=== PATIENT | male | born 1960 | race Caucasian/White ===

== ENCOUNTER 2019-04-19 21:09 | Inpatient (IN) | payer BC, OTHER ==
[~2019-04-19] VITALS: Ht 177.8 cm; Wt 123.1 kg
--- NOTE | 2019-04-19 21:20 | ED.ADGEN ---
Past History Past Medical History: Arthritis, High Cholesterol Past Surgical History: Appendectomy, Cholecystectomy Alcohol Use: Occasionally Drug Use: None Adult General Chief Complaint Chief Complaint "..I.. was at work the other morning... at [employer]... I slipped on a wet bumper I was attempting to step up onto.. and hit this Rt leg.. and fell and hurt this Rt chest.. and it not gotten better...".."My chest pain has gotten worse since the injury..." HPI HPI Patient is a 58 year old male who presents with above hx and complaints chest and back pain after a fall at work. Patient also has an abrasion to right knee. Patient states his tetanus is up-to-date. Patient states pain has been somewhat persistent but he seems more sore tonight. Patient does have a history of elevated cholesterol. Crohn's disease and multiple abdomen surgeries. Patient has a strong family history of cardiac disease with one brother having an MD at age 50. Patient's last cardiac stress test approximate 4 years ago. Patient does give a history of elevated cholesterol. Review of Systems Review of Systems Constitutional: Denies fever or chills [] Eyes: Denies change in visual acuity, redness, or eye pain [] HENT: Denies nasal congestion or sore throat [] Respiratory: Complaints of shortness of breath and chest pain. Pain in right shoulder. Cardiovascular: No additional information not addressed in HPI [] GI: Denies abdominal pain, nausea, vomiting, bloody stools or diarrhea [] : Denies dysuria or hematuria [] Musculoskeletal: Denies back pain or joint pain []abrasion and contusion to right knee Integument: Denies rash or skin lesions [] Neurologic: Denies headache, focal weakness or sensory changes [] Endocrine: Denies polyuria or polydipsia [] All other systems were reviewed and found to be within normal limits, except as documented in this note. Family History Family History MD in brother age 50 Current Medications Current Medications Current Medications Medications (Trade) Dose Ordered Sig/Ericka Start Time Stop Time Status Last Admin Dose Admin Aspirin (Children'S Aspirin) 324 mg 1X ONCE 04/19/19 22:00 04/19/19 22:01 DC 04/19/19 22:42 324 MG Iohexol (Omnipaque 240 Mg/ml) 30 ml 1X ONCE 8/19/19 01:30 04/20/19 01:31 DC 04/20/19 02:31 30 ML Iohexol (Omnipaque 350 Mg/ml) 100 ml 1X ONCE 04/20/19 01:30 04/20/19 01:31 DC 04/20/19 02:31 100 ML Lactated Ringer's 1,000 ml @ 1,000 mls/hr Q1H 04/19/19 22:00 04/19/19 22:59 DC 04/19/19 22:42 1,000 MLS/HR Magnesium Sulfate 50 ml @ 25 mls/hr 1X ONCE 04/20/19 02:00 04/20/19 03:59 DC 04/20/19 02:01 25 MLS/HR Morphine Sulfate (Morphine 10mg Syringe) 10 mg 1X ONCE 04/20/19 01:30 04/20/19 01:31 DC 04/20/19 01:31 10 MG Ondansetron HCl (Zofran) 4 mg STK-MED ONCE 04/20/19 01:58 04/20/19 01:58 DC Allergies Allergies Allergies Coded Allergies Type Severity Reaction Last Updated Verified No Known Drug Allergies 05/14/14 No Physical Exam Physical Exam Constitutional: Moderate acute distress, non-toxic appearance. [] HENT: Normocephalic, atraumatic, bilateral external ears normal, oropharynx moist, no oral exudates, nose normal. [] Eyes: PERRLA, EOMI, conjunctiva normal, no discharge. [] Neck: Normal range of motion, no tenderness, supple, no stridor. [] Cardiovascular:Heart rate regular rhythm, no murmur [] Lungs & Thorax: Bilateral breath sounds equal at apexes on auscultation []chest wall tenderness on right chest wall and right upper chest. Abdomen: Bowel sounds normal, soft, no tenderness, no masses, no pulsatile masses. [] Multiple old surgery scars Skin: Warm, dry, no erythema, no rash. [] Back: No tenderness, no CVA tenderness. [] Extremities: No tenderness, no cyanosis, no clubbing, ROM intact, no edema. []Contusion abrasion right knee Neurologic: Alert and oriented X 3, normal motor function, normal sensory function, no focal deficits noted. [] Psychologic: Affect anxious, judgement normal, mood normal. [] Current Patient Data Vital Signs Vital Signs Date Time Temp Pulse Resp B/P (MAP) Pulse Ox O2 Delivery O2 Flow Rate FiO2 04/20/19 01:31 18 97 Room Air 04/20/19 01:30 57 123/62 (82) 04/19/19 21:09 97.8 Lab Results Laboratory Tests Test 04/19/19 21:50 04/19/19 22:00 Urine Collection Type Unknown Urine Color Yellow Urine Clarity Clear Urine pH 6.0 Urine Specific [place] 1.025 Urine Protein Neg (NEG-TRACE) Urine Glucose (UA) Neg mg/dL (NEG) Urine Ketones (Stick) Neg mg/dL (NEG) Urine Blood Neg (NEG) Urine Nitrite Neg (NEG) Urine Bilirubin Neg (NEG) Urine Urobilinogen Dipstick 0.2 mg/dL (0.2 mg/dL) Urine Leukocyte Esterase Neg (NEG) Urine RBC 0 /HPF (0-2) Urine WBC Occ /HPF (0-4) Urine Squamous Epithelial Cells Occ /LPF Urine Bacteria 0 /HPF (0-FEW) Urine Opiates Screen Neg (NEG) Urine Methadone Screen Neg (NEG) Urine Barbiturates Neg (NEG) Urine Phencyclidine Screen Neg (NEG) Urine Amphetamine/Methamphetamine Neg (NEG) Urine Benzodiazepines Screen Neg (NEG) Urine Cocaine Screen Neg (NEG) Urine Cannabinoids Screen Neg (NEG) Urine Ethyl Alcohol Neg (NEG) White Blood Count 6.0 x10^3/uL (4.0-11.0) Red Blood Count 5.07 x10^6/uL (4.30-5.70) Hemoglobin 13.6 g/dL (13.0-17.5) Hematocrit 41.9 % (39.0-53.0) Mean Corpuscular Volume 83 fL (79-100) Mean Corpuscular Hemoglobin 27 pg (25-35) Mean Corpuscular Hemoglobin Concent 32 g/dL (31-37) Red Cell Distribution Width 16.6 % (11.5-14.5) H Platelet Count 275 x10^3/uL (140-400) Neutrophils (%) (Auto) 73 % (31-73) Lymphocytes (%) (Auto) 13 % (24-48) L Monocytes (%) (Auto) 9 % (0-9) Eosinophils (%) (Auto) 4 % (0-3) H Basophils (%) (Auto) 1 % (0-3) Neutrophils # (Auto) 4.4 x10^3uL (1.8-7.7) Lymphocytes # (Auto) 0.8 x10^3/uL (1.0-4.8) L Monocytes # (Auto) 0.6 x10^3/uL (0.0-1.1) Eosinophils # (Auto) 0.2 x10^3/uL (0.0-0.7) Basophils # (Auto) 0.0 x10^3/uL (0.0-0.2) Prothrombin Time 10.2 SEC (9.4-11.4) Prothrombin Time INR 1.0 (0.9-1.1) Activated Partial Thromboplast Time 25 SEC (23-33) D-Dimer (Cathy) 0.72 mg/L (0.00-0.50) H Sodium Level 140 mmol/L (136-145) Potassium Level 3.7 mmol/L (3.5-5.1) Chloride Level 103 mmol/L (98-107) Carbon Dioxide Level 31 mmol/L (21-32) Anion Gap 6 (6-14) Blood Urea Nitrogen 18 mg/dL (8-26) Creatinine 1.1 mg/dL (0.7-1.3) Estimated GFR (Cockcroft-Gault) 68.5 Glucose Level 104 mg/dL (70-99) H Calcium Level 8.9 mg/dL (8.5-10.1) Magnesium Level 1.7 mg/dL (1.8-2.4) L Total Bilirubin 0.4 mg/dL (0.2-1.0) Direct Bilirubin 0.1 mg/dL (0.0-0.2) Aspartate Amino Transferase (AST) 28 U/L (15-37) Alanine Aminotransferase (ALT) 30 U/L (16-63) Alkaline Phosphatase 96 U/L (46-116) Creatine Kinase 108 U/L (39-308) Troponin I Quantitative < 0.017 ng/mL (0-0.055) YZ-Bqt-T-Type Natriuretic Peptide 106 pg/mL (0-124) Total Protein 8.1 g/dL (6.4-8.2) Albumin 3.6 g/dL (3.4-5.0) Lipase 166 U/L (73-393) EKG EKG My interpretation of EKG shows a sinus rhythm at 63 bpm. No acute morphology[] Radiology/Procedures Radiology/Procedures [][address] [id number] IMAGING REPORT Signed PATIENT: BRIANNA RIVERA ACCOUNT: [id number] : 1960 LOCATION: ER AGE: 58 SEX: M EXAM STATUS: REG ER ORD. PHYSICIAN: JEANETTE GRECO MD REASON: Fall 04/17/19 on right sided, chest, back and abdomen pain, elevat PROCEDURE: CT ANGIO CHEST W ABD PEL W/ EXAM: 1. CT ANGIOGRAPHY OF THE CHEST, ABDOMEN AND PELVIS WITH AND WITHOUT CONTRAST. 2. CT THORACIC SPINE WITHOUT CONTRAST. HISTORY: Fall, back pain, right chest pain, elevated d-dimer. TECHNIQUE: Computed tomographic angiography of the chest, abdomen and pelvis was performed before and after the intravenous administration of iodinated contrast. 3-D maximum intensity projections were also performed. CT of the thoracic spine was performed without intravenous contrast. COMPARISON: None. FINDINGS: Thoracic alignment is maintained. No fractures are appreciated within the thoracic spine. There is a prominent hemangioma in T11. There are small Schmorl's nodes throughout the lower thoracic spine. Mild wedging at T8 is likely developmental. Endplate remodeling indicates mild lower thoracic degenerative disc disease. There is no clear central canal stenosis or neural foraminal stenosis by CT. Bone windows elsewhere reveal a nondisplaced fracture of the right second rib which may be acute or chronic. There are no displaced rib fractures.. There is grade 2 anterolisthesis at L4-5 from bilateral L4 pars interarticularis defects. There is severe degenerative disc disease at this level. No pulmonary emboli are identified. There is no aortic dissection or aneurysm. There are no pathologically enlarged mediastinal or axillary lymph nodes. Calcified left hilar lymph nodes are consistent with old granulomatous disease. There is no pleural or pericardial effusion. The heart is not enlarged. Dependent groundglass opacities most likely indicate atelectasis. The gallbladder is surgically absent. There is moderate intra and extrahepatic biliary dilatation. The common duct measures 1.5 cm but appears to taper distally without a clear cause for obstruction. The pancreatic duct is not dilated. No pancreatic parenchymal lesion is identified. Hypoattenuating focus within the spleen posteriorly measures 1.7 cm. The spleen is moderately enlarged at 17.6 cm. There are no focal hepatic lesions. The kidneys and adrenal glands are unremarkable. There are changes of mesh repair of the anterior abdominal wall. There are multiple moderate hernias surrounding the periphery of the mesh most notably inferiorly. Smaller hernias are also noted lateral and superior to the mesh. The largest inferiorly contains a segment of the transverse colon without evidence of obstruction. The prostate is moderately enlarged. There are no pathologically enlarged lymph nodes. There is no abdominal aortic aneurysm. The celiac axis, superior mesenteric artery and inferior mesenteric artery are patent. Opacification is suboptimal. Both renal arteries are patent without stenosis. There are minimal atherosclerotic calcifications along the left common iliac artery. The iliac systems are patent without stenosis bilaterally. IMPRESSION: 1. No pulmonary embolism. 2. Possible nondisplaced right second rib fracture, though this may not be acute. No displaced rib fractures. No evidence of intrathoracic or intra-abdominal trauma. 3. No thoracic spine fracture. Grade 2 anterolisthesis at L4-5 from bilateral elbow 4 pars interarticularis defects. 4. Status post mesh repair of the anterior abdominal wall. There are multiple hernias surrounding the periphery of the mass. The largest inferiorly contains a segment of the transverse colon without acute obstruction. Ongoing management is recommended. 5. Moderate intra and extrahepatic biliary dilatation status post cholecystectomy. No cause for obstruction is seen. Correlate for cholestasis to assess significance. 6. Moderate splenomegaly. A 1.7 cm hypoattenuating lesion in the spleen is most likely a benign lesion such as a cyst or hemangioma in the absence of known malignancy. *One or more of the following individualized dose reduction techniques were utilized for this examination: 1. Automated exposure control. 2. Adjustment of the mA and/or kV according to patient size. 3. Use of iterative reconstruction technique. Electronically signed by: Sid Saenz MD (04/20/2019 4:18 AM) [facility] DICTATED AND SIGNED BY: JACOBY SAENZ MD DATE: 04/20/19 0418 CC: RACHEL DAI MD; JEANETTE GRECO MD ~ [facility] [address] [place] [id number] IMAGING REPORT Signed PATIENT: BRIANNA RIVERA ACCOUNT: [id number] : 1960 LOCATION: ER AGE: 58 SEX: M EXAM STATUS: PRE ER ORD. PHYSICIAN: JEANETTE GRECO MD REASON: Fell on right shoulder, right shoulder and chest pain PROCEDURE: CHEST PA & LATERAL Exam: Chest 2 views INDICATION: Fall TECHNIQUE: Frontal and lateral views of the chest Comparisons: None FINDINGS: The cardiomediastinal silhouette and pulmonary vessels are within normal limits. The lung and pleural spaces are clear. IMPRESSION: No acute cardiopulmonary process. Electronically signed by: Pedro Luis Elmore MD (04/19/2019 10:53 PM) [facility] DICTATED AND SIGNED BY: PEDRO LUIS ELMORE MD DATE: 04/19/19 3134 CC: RACHEL DAI MD; JEANETTE GRECO MD ~ Course & Med Decision Making Course & Med Decision Making Pertinent Labs and Imaging studies reviewed. (See chart for details) Discussed presentation, testing and treatment plan with . Will admit for cardiology consult. [] Final Impression Final Impression 1. Chest Pain[] 2. Back Pain- Thoracic 3. Fall 4. Hypomagnesium 1.7 5. Elevated D-dimer 0.72 6. Second nondisplaced rib fracture right 7. Contusions/abrasions Dragon Disclaimer Dragon Disclaimer This electronic medical record was generated, in whole or in part, using a voice recognition dictation system. Dragon Disclaimer This chart was dictated in whole or in part using Voice Recognition software in a busy, high-work load, and often noisy Emergency Department environment. It may contain unintended and wholly unrecognized errors or omissions. JEANETTE GRECO MD Apr 19, 2019 21:20
[2019-04-19] MEDS ORDERED: ASPIRIN 81 MG TAB.CHEW PO ONE (22:00)
[2019-04-19] MEDS ORDERED: IV RINGERS SOLUTION,LACTATED 1,000 ML IV SCH (22:00)
[2019-04-19 22:16] LABS: BASO % 1 % (0-3); EOS # 0.2 x10^3/uL (0.0-0.7); EOS % 4 % (0-3); HEMATOCRIT 41.9 % (39.0-53.0); HEMOGLOBIN 13.6 g/dL (13.0-17.5); LYMPH # 0.8 x10^3/uL (1.0-4.8); LYMPH % 13 % (24-48); MEAN CORPUSCULAR HEMOGLOBIN 27 pg (25-35); MEAN CORPUSCULAR HGB CONC 32 g/dL (31-37); MEAN CORPUSCULAR VOLUME 83 fL (79-100); MONO # 0.6 x10^3/uL (0.0-1.1); MONO % 9 % (0-9); NEUT # 4.4 x10^3uL (1.8-7.7); NEUT % 73 % (31-73); PLATELET COUNT 275 x10^3/uL (140-400); RED BLOOD COUNT 5.07 x10^6/uL (4.30-5.70); RED CELL DISTRIBUTION WIDTH 16.6 % (11.5-14.5)
[2019-04-19 22:23] LABS: BARBITURATES NEG (NEG); BENZODIAZEPINES NEG (NEG); CANNABINOIDS NEG (NEG); COCAINE NEG (NEG); METHADONE NEG (NEG); OPIATES NEG (NEG); PHENCYCLIDINE NEG (NEG)
--- NOTE | 2019-04-19 22:28 | EKG ---
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
[2019-04-19 22:31] LABS: BACTERIA,URINE 0 /HPF (0-FEW); BILIRUBIN,URINE NEG (NEG); CLARITY,URINE CLEAR; COLOR,URINE YELLOW; GLUCOSE,URINE NEG (NEG); NITRITE,URINE NEG (NEG); RBC,URINE 0 /HPF (0-2); SQUAMOUS EPITHELIAL CELL,UR OCC /LPF; UROBILINOGEN,URINE 0.2 mg/dL (0.2 mg/dL); WBC,URINE OCC /HPF (0-4)
[2019-04-19 22:34] LABS: AMPHETAMINE/METHAMPHETAMINE NEG (NEG)
[2019-04-19 22:40] LABS: ALBUMIN 3.6 g/dL (3.4-5.0); CALCIUM 8.9 mg/dL (8.5-10.1); CREATININE 1.1 mg/dL (0.7-1.3); DIRECT BILIRUBIN 0.1 mg/dL (0.0-0.2); GFR 68.5; MAGNESIUM 1.7 mg/dL (1.8-2.4); POTASSIUM 3.7 mmol/L (3.5-5.1); TOTAL BILIRUBIN 0.4 mg/dL (0.2-1.0); TOTAL PROTEIN 8.1 g/dL (6.4-8.2)
--- NOTE | 2019-04-19 22:56 | RAD ---
Exam: Chest 2 views INDICATION: Fall TECHNIQUE: Frontal and lateral views of the chest Comparisons: None FINDINGS: The cardiomediastinal silhouette and pulmonary vessels are within normal limits. The lung and pleural spaces are clear. IMPRESSION: No acute cardiopulmonary process. Electronically signed by: Pedro Luis Koo MD (04/19/2019 10:53 PM) [facility]
[2019-04-20] MEDS ORDERED: MORPHINE SULFATE 10 MG/ML SYRINGE. SQ ONE (01:30)
[2019-04-20] MEDS ORDERED: IOHEXOL 240 MG/ML 50ML VIAL. PO ONE (01:30)
[2019-04-20] MEDS ORDERED: IOHEXOL 350 MG/ML 100 ML VIAL. IV ONE (01:30)
[2019-04-20] MEDS ORDERED: ONDANSETRON PF 4 MG/2 ML VIAL. ONE (01:58)
[2019-04-20] MEDS ORDERED: MAGNESIUM SULFATE 2GM 50 ML IV ONE (02:00)
[2019-04-20] MEDS ORDERED: ONDANSETRON PF 4 MG/2 ML VIAL. IM ONE (02:15)
[2019-04-20] MEDS ORDERED: ONDANSETRON PF 4 MG/2 ML VIAL. IV ONE (02:15)
--- NOTE | 2019-04-20 04:13 | EKG ---
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
--- NOTE | 2019-04-20 04:21 | RAD ---
EXAM: 1. CT ANGIOGRAPHY OF THE CHEST, ABDOMEN AND PELVIS WITH AND WITHOUT CONTRAST. 2. CT THORACIC SPINE WITHOUT CONTRAST. HISTORY: Fall, back pain, right chest pain, elevated d-dimer. TECHNIQUE: Computed tomographic angiography of the chest, abdomen and pelvis was performed before and after the intravenous administration of iodinated contrast. 3-D maximum intensity projections were also performed. CT of the thoracic spine was performed without intravenous contrast. COMPARISON: None. FINDINGS: Thoracic alignment is maintained. No fractures are appreciated within the thoracic spine. There is a prominent hemangioma in T11. There are small Schmorl's nodes throughout the lower thoracic spine. Mild wedging at T8 is likely developmental. Endplate remodeling indicates mild lower thoracic degenerative disc disease. There is no clear central canal stenosis or neural foraminal stenosis by CT. Bone windows elsewhere reveal a nondisplaced fracture of the right second rib which may be acute or chronic. There are no displaced rib fractures.. There is grade 2 anterolisthesis at L4-5 from bilateral L4 pars interarticularis defects. There is severe degenerative disc disease at this level. No pulmonary emboli are identified. There is no aortic dissection or aneurysm. There are no pathologically enlarged mediastinal or axillary lymph nodes. Calcified left hilar lymph nodes are consistent with old granulomatous disease. There is no pleural or pericardial effusion. The heart is not enlarged. Dependent groundglass opacities most likely indicate atelectasis. The gallbladder is surgically absent. There is moderate intra and extrahepatic biliary dilatation. The common duct measures 1.5 cm but appears to taper distally without a clear cause for obstruction. The pancreatic duct is not dilated. No pancreatic parenchymal lesion is identified. Hypoattenuating focus within the spleen posteriorly measures 1.7 cm. The spleen is moderately enlarged at 17.6 cm. There are no focal hepatic lesions. The kidneys and adrenal glands are unremarkable. There are changes of mesh repair of the anterior abdominal wall. There are multiple moderate hernias surrounding the periphery of the mesh most notably inferiorly. Smaller hernias are also noted lateral and superior to the mesh. The largest inferiorly contains a segment of the transverse colon without evidence of obstruction. The prostate is moderately enlarged. There are no pathologically enlarged lymph nodes. There is no abdominal aortic aneurysm. The celiac axis, superior mesenteric artery and inferior mesenteric artery are patent. Opacification is suboptimal. Both renal arteries are patent without stenosis. There are minimal atherosclerotic calcifications along the left common iliac artery. The iliac systems are patent without stenosis bilaterally. IMPRESSION: 1. No pulmonary embolism. 2. Possible nondisplaced right second rib fracture, though this may not be acute. No displaced rib fractures. No evidence of intrathoracic or intra-abdominal trauma. 3. No thoracic spine fracture. Grade 2 anterolisthesis at L4-5 from bilateral elbow 4 pars interarticularis defects. 4. Status post mesh repair of the anterior abdominal wall. There are multiple hernias surrounding the periphery of the mass. The largest inferiorly contains a segment of the transverse colon without acute obstruction. Ongoing management is recommended. 5. Moderate intra and extrahepatic biliary dilatation status post cholecystectomy. No cause for obstruction is seen. Correlate for cholestasis to assess significance. 6. Moderate splenomegaly. A 1.7 cm hypoattenuating lesion in the spleen is most likely a benign lesion such as a cyst or hemangioma in the absence of known malignancy. *One or more of the following individualized dose reduction techniques were utilized for this examination: 1. Automated exposure control. 2. Adjustment of the mA and/or kV according to patient size. 3. Use of iterative reconstruction technique. Electronically signed by: Sid Saenz MD (04/20/2019 4:18 AM) [facility]
[2019-04-20] MEDS ORDERED: ONDANSETRON PF 4 MG/2 ML VIAL. IV PRN (04:45)
[2019-04-20] MEDS ORDERED: MORPHINE SULFATE 4 MG/ML DISP.SYRIN. IV PRN (04:45)
[2019-04-20] MEDS ORDERED: IPRATRPIUM/ALBUTEROL 0.5/2.5MG 3 ML NEBU. ONE (04:52)
[2019-04-20] MEDS ORDERED: ANTI-COAG MONITOR BY PHARMACY. MC PRN (05:00)
[2019-04-20] MEDS: IPRATRPIUM/ALBUTEROL 0.5/2.5MG 3 ML NEBU. NEB SCH ×3 (05:08→16:21)
[2019-04-20 06:16] VITALS: BP 133/78
[2019-04-20] MEDS ORDERED: MESA1.2T3 PO (07:39)
[2019-04-20] MEDS ORDERED: ATOR10TA60 PO (07:39)
[2019-04-20] MEDS ORDERED: ASPI-630 PO (07:39)
[2019-04-20] MEDS ORDERED: HYDR200T71 PO (07:39)
[2019-04-20] MEDS ORDERED: TAMS0.4C97 PO (07:39)
[2019-04-20] MEDS ORDERED: MESALAMINE 1.2 GM TABLET.DR PO SCH (09:00)
[2019-04-20] MEDS ORDERED: HYDROXYCHLOROQUINE 200 MG TABLET PO SCH (09:00)
[2019-04-20] MEDS ORDERED: ASPIRIN 81 MG TAB.CHEW PO SCH (09:00)
[2019-04-20] MEDS ORDERED: ENOXAPARIN ** NOTE DOSE ** SYRINGE SQ SCH ×2 (09:00→21:00)
[2019-04-20] MEDS ORDERED: TAMSULOSIN 0.4 MG CAP.ER.24H. PO SCH (09:00)
--- NOTE | 2019-04-20 09:02 | PDOC2 ---
BERNARDINO ABARCA OPERATIONS CONSULTANT 04/20/19 0902: CARDIAC CONSULT DATE OF CONSULT Date Of Consult DATE: 04/20/19 TIME: 09:00 REASON FOR CONSULT Reason for Consult Chest pain Elevated lipids REFERRING PHYSICIAN Referring Physician Dr. Madrid SOURCE Source: Chart review, Patient HPI History of Present Illness This is a 58 yo male who presented secondary to right chest and shoulder pain after following a fall at work. Patient reports he was at work Saturday and sl ipped and fell out of the back of a pickup truck, landing on his right shoulder/chest and right knee. Had some pain in the right shoulder/chest immediately after the fall, but has progressively worsened over the weekend. No associated dizziness, diaphoresis, palpitations, diaphoresis, or nausea/vomiting. Pain worsening with deep breathing and by applying pressure to the right chest. PAST MEDICAL HISTORY Cardiovascular: hyperipidemia GI: Other (Crohn's Disease) Heme/Onc: Anemia NOS Rheumatologic: Rheumatoid arthritis PAST SURGICAL HISTORY Past Surgical History: Appendectomy, Cholecystectomy, Hernia Repair FAMILY HISTORY Family History: Coronary Artery Disease (both father and brother in their 50's from [place].) CURRENT MEDICATIONS Current Medications Current Medications Aspirin (Children'S Aspirin) 324 mg 1X ONCE PO Last administered on 04/19/19 22:42; Start 04/19/19 at 22:00; Stop 04/19/19 at 22:01; Status DC Lactated Ringer's 1,000 ml @ 1,000 mls/hr Q1H IV Last administered on 04/19/19 22:42; Start 04/19/19 at 22:00; Stop 04/19/19 at 22:59; Status DC Iohexol (Omnipaque 240 Mg/ml) 30 ml 1X ONCE PO Last administered on 04/20/19 02:31; Start 04/20/19 at 01:30; Stop 04/20/19 at 01:31; Status DC Iohexol (Omnipaque 350 Mg/ml) 100 ml 1X ONCE IV Last administered on 04/20/19 02:31; Start 04/20/19 at 01:30; Stop 04/20/19 at 01:31; Status DC Morphine Sulfate (Morphine 10mg Syringe) 10 mg 1X ONCE SQ Last administered on 04/20/19 01:31; Start 04/20/19 at 01:30; Stop 04/20/19 at 01:31; Status DC Magnesium Sulfate 50 ml @ 25 mls/hr 1X ONCE IV Last administered on 04/20/19at 02:01; Start 04/20/19 at 02:00; Stop 04/20/19 at 03:59; Status DC Ondansetron HCl (Zofran) 4 mg STK-MED ONCE .ROUTE ; Start 04/20/19 at 01:58; Stop 04/20/19 at 01:58; Status DC Ondansetron HCl (Zofran) 8 mg 1X ONCE IM Last administered on 04/20/19at 02:08; Start 04/20/19 at 02:15; Stop 04/20/19 at 02:09; Status DC Ondansetron HCl (Zofran) 8 mg 1X ONCE IV Last administered on 04/20/19at 02:12; Start 04/20/19 at 02:15; Stop 04/20/19 at 02:16; Status DC Ondansetron HCl (Zofran) 4 mg PRN Q4HRS PRN IV NAUSEA/VOMITING; Start 04/20/19 at 04:45; Stop 04/21/19 at 04:44 Morphine Sulfate (Morphine 4mg Syringe) 4 mg PRN Q2HR PRN IV PAIN; Start 04/20/19 at 04:45; Stop 04/21/19 at 04:44 Albuterol/ Ipratropium (Duoneb) 3 ml RTQID NEB Last administered on 04/20/19at 05:08; Start 04/20/19 at 08:00; Stop 04/21/19 at 07:59 Enoxaparin Sodium (Lovenox 150mg Syringe) 140 mg BID SQ ; Start 04/20/19 at 09:00 Nitroglycerin (Nitro-Bid Oint) 1 inch TID TP ; Start 04/20/19 at 09:00 Info (Anti-Coagulation Monitoring By Pharmacy) 1 each PRN DAILY PRN MC SEE COMMENTS; Start 04/20/19 at 05:00; Status Cancel Albuterol/ Ipratropium (Duoneb) 3 ml STK-MED ONCE .ROUTE ; Start 04/20/19 at 04:52; Stop 04/20/19 at 04:52; Status DC Aspirin (Children'S Aspirin) 81 mg DAILY PO ; Start 04/20/19 at 09:00 Atorvastatin Calcium (Lipitor) 10 mg QHS PO ; Start 04/20/19 at 21:00 Hydroxychloroquine Sulfate (Plaquenil) 200 mg DAILY PO ; Start 04/20/19 at 09:00 Mesalamine (Lialda) 4.8 gm DAILY PO ; Start 04/20/19 at 09:00 Tamsulosin HCl (Flomax) 0.4 mg DAILY PO ; Start 04/20/19 at 09:00 Active Scripts Active Reported Plaquenil (Hydroxychloroquine Sulfate) 200 Mg Tablet 200 Mg PO DAILY Mesalamine 1.2 Gm Tablet.dr 4 Tab PO DAILY Atorvastatin Calcium 10 Mg Tablet 10 Mg PO QHS Flomax (Tamsulosin Hcl) 0.4 Mg Cap.er.24h 1 Cap PO DAILY Aspirin 81 Mg Tab.chew 81 Mg PO DAILY ALLERGIES Allergies: Coded Allergies: No Known Drug Allergies (Unverified , 05/14/14) ROS Review of Systems 14 point ROS conducted with pertinent positives noted above in HPI PHYSICAL EXAM General: Alert, Oriented X3, Cooperative, No acute distress HEENT: Atraumatic, Mucous membr. moist/pink Lungs: Clear to auscultation, Normal air movement, Other (right chest tenderness upon palpitation) Heart: Regular rate, Normal S1, Normal S2, No murmurs Abdomen: Soft, No tenderness Extremities: No edema, Normal pulses Skin: No breakdown Neuro: Normal speech, Sensation intact Psych/Mental Status: Mental status NL, Mood NL MUSCULOSKELETAL: Osteoarthritic changes both hands VITALS Vital Signs Vital Signs Date Time Temp Pulse Resp B/P (MAP) Pulse Ox O2 Delivery O2 Flow Rate FiO2 04/20/19 08:00 Room Air 04/20/19 06:16 97.4 65 17 133/78 (96) 96 LABS LABS Laboratory Tests Test 04/19/19 21:50 04/19/19 22:00 04/20/19 03:45 04/20/19 08:00 Urine Collection Type Unknown Urine Color Yellow Urine Clarity Clear Urine pH 6.0 Urine Specific [place] 1.025 Urine Protein Neg (NEG-TRACE) Urine Glucose (UA) Neg mg/dL (NEG) Urine Ketones (Stick) Neg mg/dL (NEG) Urine Blood Neg (NEG) Urine Nitrite Neg (NEG) Urine Bilirubin Neg (NEG) Urine Urobilinogen Dipstick 0.2 mg/dL (0.2 mg/dL) Urine Leukocyte Esterase Neg (NEG) Urine RBC 0 /HPF (0-2) Urine WBC Occ /HPF (0-4) Urine Squamous Epithelial Cells Occ /LPF Urine Bacteria 0 /HPF (0-FEW) Urine Opiates Screen Neg (NEG) Urine Methadone Screen Neg (NEG) Urine Barbiturates Neg (NEG) Urine Phencyclidine Screen Neg (NEG) Urine Amphetamine/Methamphetamine Neg (NEG) Urine Benzodiazepines Screen Neg (NEG) Urine Cocaine Screen Neg (NEG) Urine Cannabinoids Screen Neg (NEG) Urine Ethyl Alcohol Neg (NEG) White Blood Count 6.0 x10^3/uL (4.0-11.0) Red Blood Count 5.07 x10^6/uL (4.30-5.70) Hemoglobin 13.6 g/dL (13.0-17.5) Hematocrit 41.9 % (39.0-53.0) Mean Corpuscular Volume 83 fL (79-100) Mean Corpuscular Hemoglobin 27 pg (25-35) Mean Corpuscular Hemoglobin Concent 32 g/dL (31-37) Red Cell Distribution Width 16.6 % (11.5-14.5) Platelet Count 275 x10^3/uL (140-400) Neutrophils (%) (Auto) 73 % (31-73) Lymphocytes (%) (Auto) 13 % (24-48) Monocytes (%) (Auto) 9 % (0-9) Eosinophils (%) (Auto) 4 % (0-3) Basophils (%) (Auto) 1 % (0-3) Neutrophils # (Auto) 4.4 x10^3uL (1.8-7.7) Lymphocytes # (Auto) 0.8 x10^3/uL (1.0-4.8) Monocytes # (Auto) 0.6 x10^3/uL (0.0-1.1) Eosinophils # (Auto) 0.2 x10^3/uL (0.0-0.7) Basophils # (Auto) 0.0 x10^3/uL (0.0-0.2) Prothrombin Time 10.2 SEC (9.4-11.4) Prothromb Time International Ratio 1.0 (0.9-1.1) Activated Partial Thromboplast Time 25 SEC (23-33) D-Dimer (Cathy) 0.72 mg/L (0.00-0.50) Sodium Level 140 mmol/L (136-145) Potassium Level 3.7 mmol/L (3.5-5.1) Chloride Level 103 mmol/L (98-107) Carbon Dioxide Level 31 mmol/L (21-32) Anion Gap 6 (6-14) Blood Urea Nitrogen 18 mg/dL (8-26) Creatinine 1.1 mg/dL (0.7-1.3) Estimated GFR (Cockcroft-Gault) 68.5 Glucose Level 104 mg/dL (70-99) Calcium Level 8.9 mg/dL (8.5-10.1) Magnesium Level 1.7 mg/dL (1.8-2.4) Total Bilirubin 0.4 mg/dL (0.2-1.0) Direct Bilirubin 0.1 mg/dL (0.0-0.2) Aspartate Amino Transf (AST/SGOT) 28 U/L (15-37) Alanine Aminotransferase (ALT/SGPT) 30 U/L (16-63) Alkaline Phosphatase 96 U/L (46-116) Creatine Kinase 108 U/L (39-308) Troponin I Quantitative < 0.017 ng/mL (0-0.055) < 0.017 ng/mL (0-0.055) < 0.017 ng/mL (0-0.055) YB-Dmv-E-Type Natriuretic Peptide 106 pg/mL (0-124) Total Protein 8.1 g/dL (6.4-8.2) Albumin 3.6 g/dL (3.4-5.0) Lipase 166 U/L (73-393) ASSESSMENT/PLAN Assessment/Plan 1. Right chest/shoulder pain. Non-cardiac. Secondary to falling from the bed of a pickup truck. 2, Hyperlipidemia; statin 3. Hypomagnesemia 4. Elevated D-dimer; CAT negative for PE Recommendations Continue ASA, statin therapy Due to risk factors of family history of CAD, will arrange for outpatient stress test. Supportive care. MARIUSZ WINSLOW MD 04/20/19 2009: CARDIAC CONSULT ASSESSMENT/PLAN Assessment/Plan Patient seen and examined. Agree with AMUSEMENT OR RECREATION CARD CHECKER's assessment and plan. CP with atypical features and most probably musculoskeletal MA ruled out Plan outpatient ischemic evaluation Thank you for your consultation BERNARDINO ABARCA APRN Apr 20, 2019 09:02 MARIUSZ WINSLOW MD Apr 20, 2019 20:09
[2019-04-20] MEDS: NITROGLYCERIN OINT 1 GM PACKET. TP SCH ×2 (09:45→13:31)
[2019-04-20 10:51] VITALS: BP 122/74
--- NOTE | 2019-04-20 12:17 | RAD ---
Bilateral lower extremity venous doppler ultrasound History: Elevated d-dimer, knee injury Comparison: None Findings: Multiple grayscale, color, and duplex spectral analysis sonographic images were acquired of the bilateral lower extremity veins to evaluate for the presence of DVT. There is normal phasicity. Normal compression, color-flow, and augmentation is demonstrated from the bilateral common femoral to the popliteal veins. There is normal color flow of the proximal greater saphenous and profunda femoris veins. There is normal color flow of segments of the calf veins. Impression: 1. There is no evidence of deep venous thrombosis from the bilateral common femoral to the popliteal veins. Electronically signed by: Jose Hinkle MD (04/20/2019 12:14 PM) [id number]
[2019-04-20 13:41] LABS: THYROID STIM HORMONE (TSH) 2.924 uIU/mL (0.358-3.740)
[2019-04-20] MEDS: HYDROcodone/APAP 5/325MG 1 TAB TABLET PO PRN ×2 (13:52→18:15)
[2019-04-20 14:21] VITALS: BP 113/66
[2019-04-20] MEDS ORDERED: TETANUS AND DIPHTHERIA TOX/PF 0.5 ML VIAL. VAX IM ONE (18:00)
[2019-04-20] MEDS ORDERED: HYDR-2759 PO (18:11)
[2019-04-20] MEDS ORDERED: ATORVASTATIN CALCIUM 10 MG TABLET. PO SCH (21:00)
--- NOTE | 2019-04-20 21:30 | SSS ---
ADMIT DATE: 04/20/2019 HISTORY OF PRESENT ILLNESS: The patient is a 58-year-old male patient who apparently presented to the Emergency Room with complaint of right-sided chest pain and shoulder pain after a fall at work. He reports that he was at work on Saturday and slipped and fell out to the back of the pickup truck, landing on his right shoulder, chest and right knee, had some pain in the right shoulder and chest immediately after the fall, but has progressively worsened over the weekend. He denied any dizziness or lightheadedness. Denied any palpitation, diaphoresis, nausea, vomiting or shortness of breath. Pain is worse with taking a deep breath. By applying pressure to the right chest, he was apparently extensively investigated in the Emergency Room. He has had 3 sets of cardiac enzymes showed troponin to be less than 0.017. His lipid profile showed his triglycerides were 227, total cholesterol 151 and his cholesterol to HDL ratio was 5. He has extensive imaging including his chest x-ray, thoracic spine, CT scan of the chest, abdomen and pelvis as well as lower extremity ultrasound. He was seen in consultation by the creative services coordinator who did order an echocardiogram and all his cardiac enzymes were negative. He was seen actually by the creative services coordinator who recommended an outpatient stress test given that he has a strong family history of premature coronary artery disease. PAST MEDICAL HISTORY: Significant for Crohn's disease, rheumatoid arthritis, hyperlipidemia, benign prostatic hypertrophy, apparently had stress test done about 3 years and 7 years ago and both were normal. PAST SURGICAL HISTORY: Significant for cholecystectomy, appendectomy, hernia repair, right knee arthroscopic surgery, has had esophagogastroduodenoscopy and colonoscopy. ALLERGIES: He has no known drug allergies. MEDICATIONS: He is currently on following medications: He is on hydroxychloroquine sulfate 200 mg once a day, tamsulosin 0.4 mg daily, atorvastatin 10 mg daily, aspirin 81 mg once a day, mesalamine 1.2 grams, he takes 4 tablets p.o. daily. FAMILY HISTORY: He has 1 sister, still alive and healthy. One brother at age of 50 because of myocardial infarction. Another sister at 55 because of fall and trauma. Father at the age of 55 because of myocardial infarction. His mother is still alive at the age of 79 and has rheumatoid arthritis. SOCIAL HISTORY: He is , has 3 children from previous marriage. He quit smoking 30 years ago. He drinks alcohol occasionally. Does not use drugs and work in [employer]. REVIEW OF SYSTEMS: The patient denied any blurring of vision, cataract, glaucoma or macular degeneration. Denied any earache, tinnitus or sensorineural deafness. Denied any nosebleeds, stuffy nose or postnasal drip. Denied any sore throat, sore tongue, toothache, hoarseness of voice or difficulty swallowing. Denied any nausea, vomiting, diarrhea or constipation. Denied any hematemesis, melena or hematochezia. Denied any dysuria, frequency or hematuria. Did complain of right-sided chest pain, it is worse while taking a deep breath, but denied any nausea or vomiting. Denied any diaphoresis, denied any shortness of breath. Denied any orthopnea or paroxysmal nocturnal dyspnea. Denied any cough, phlegm or hemoptysis. Denied any chills, rigors or fever. PHYSICAL EXAMINATION: GENERAL: When I examined him, he looked well and was clearly in no apparent respiratory distress. No pallor, jaundice, cyanosis or thyromegaly. No jugular venous distention. No lower limb edema. VITAL SIGNS: His heart rate was 61, blood pressure was 110/55, his temperature was 97.8, respiratory rate was 18 and oxygen saturation was 97% on room air. HEAD, EYES, EARS, NOSE AND THROAT: Showed normocephalic, atraumatic. NECK: Supple. HEART: Showed normal first and second heart sounds. No gallop, rub or murmur. CHEST: Clear to auscultation. No crepitation or rhonchi. ABDOMEN: Distended, soft, nontender. No guarding or rigidity. No organomegaly. All hernial orifice intact. Bowel sounds normal. NEUROLOGIC: He was awake, alert, responding appropriately. All cranial nerves intact. EXTREMITIES: He moves extremities without difficulty, ambulates without assistance or assistive devices. LABORATORY DATA: His lab work showed his serum sodium was 140, potassium 3.7, chloride 103, bicarbonate 31, anion gap of 6, BUN 18, creatinine 1.1, estimated GFR was 68 mL per minute, his glucose 104, calcium was 8.9, magnesium was 1.7. Total bilirubin, AST, ALT, alkaline phosphatase were normal. Total protein was 8.1, albumin 3.6. He has 3 sets of cardiac enzymes, all of them showed troponin to be less than 0.017. His serum triglycerides were 227, total cholesterol 151, LDL was 80, VLDL was 45, HDL cholesterol was 26 and cholesterol to HDL cholesterol ratio was 5, lipase 166. TSH was 2.924. His white cell count was 6000, hemoglobin 13.6, hematocrit 42, MCV 83 and platelet count 275,000 with normal manual differential. His prothrombin time was 10.2, INR of 1, aPTT 25 and D-dimer was 0.722. His urinalysis showed the urine was yellow, clear with a pH of 6, specific gravity 1.025. Urine was essentially negative. Toxic screen was negative. He did have a chest x-ray, which showed that his cardiomediastinal silhouette and pulmonary vessels are within normal limits. The lungs and pleural spaces are clear. Thoracic spine CT scan showed that the thoracic alignment is maintained. No fractures are appreciated within the thoracic spine. There is a prominent hemangioma at T11. There are small Schmorl's nodes throughout the lower thoracic spine, mild wedging at T8 is likely developmental, end-plate remodeling indicates mild lower thoracic degenerative disk disease. There is no clear central canal stenosis, neural foraminal stenosis by CT scan. Bone windows elsewhere revealed a nondisplaced fracture of the right second rib, which may be acute or chronic. There are no displaced rib fractures. There is a grade 2 anterolisthesis at L4-L5 with some bilateral L4 pars interarticularis defects. There is severe degenerative disk disease at this level. No pulmonary emboli identified. There is no aortic dissection or aneurysm. There are no pathologically enlarged mediastinal axillary lymph nodes, calcified left hilar lymph nodes are consistent with old granulomatous disease. There is no pericardial effusion. The heart is not enlarged. Dependent ground glass opacities, most likely indicate atelectasis. The gallbladder is surgically absent. There is moderate intra and extrahepatic biliary dilatation. The common bile duct measures 1.5 cm, but appears to taper distally without a clear cause of obstruction. The pancreatic duct not dilated. No pancreatic parenchymal lesion was identified, hypoattenuating focus within the spleen anteriorly, posteriorly measures 1.7 cm. The spleen is moderately enlarged at 17.6. There are no focal hepatic lesions. The kidneys and adrenal glands are unremarkable. There are changes of mesh repair with anterior abdominal wall. There are multiple moderate hernia surrounding the periphery of the mesh, most notably inferiorly smaller hernias are also noted lateral superior to the mesh. The largest inferiorly contains segment of transverse colon without evidence of obstruction. The prostate is moderately enlarged. There are no pathologically enlarged lymph nodes. There is no abdominal aortic aneurysm. The celiac axis, superior mesenteric artery and inferior mesenteric artery are patent. Opacification is suboptimal. Both renal arteries are patent without stenosis. There are minimal atherosclerotic calcifications along the left common iliac artery. The iliac system are patent without stenosis bilaterally. ASSESSMENT AND PLAN: The patient was basically seen by the creative services coordinator, who recommended doing an outpatient stress test was discharged to continue on his medication including aspirin 81 mg once a day, atorvastatin calcium 10 mg at bedtime, hydroxychloroquine sulfate 200 mg daily, Mesalamine 1.2 grams 4 tablets daily, Flomax 0.4 mg at bedtime. He was also discharged on hydrocodone/APAP 5/325 one tablet every 6 hours. He was given a note to return back to work on 04/27/2019 and that he should return to a light duty to restrict lifting less than 10 pounds for at least 2 weeks. He should follow with his primary care physician. He was given a tetanus shot. KERRI GAITAN MD DR: AVELINO/sandro JOB#: [id number] / [id number]
== END 2019-04-20 18:30 | disposition home or self-care (01) | DRG 206 ==
LOC: ER 21:09 → 1 SOUTH 04-20 02:00
PROVIDERS: ADMIT Internal Medicine; ATTEND Internal Medicine
DX: S22.31XA Fracture of one rib, right side, initial encounter for closed fracture (principal); K50.90 Crohn's disease, unspecified, without complications; D18.00 Hemangioma unspecified site; E78.00 Pure hypercholesterolemia, unspecified; E78.5 Hyperlipidemia, unspecified; E83.42 Hypomagnesemia; M06.9 Rheumatoid arthritis, unspecified; M43.16 Spondylolisthesis, lumbar region; N40.0 Benign prostatic hyperplasia without lower urinary tract symptoms; S80.211A Abrasion, right knee, initial encounter; W06.XXXA Fall from bed, initial encounter; Z79.82 Long term (current) use of aspirin; Z79.899 Other long term (current) drug therapy; Z82.49 Family history of ischemic heart disease and other diseases of the circulatory system; Z90.49 Acquired absence of other specified parts of digestive tract; Z87.891 Personal history of nicotine dependence; M19.90 Unspecified osteoarthritis, unspecified site; W18.39XA Other fall on same level, initial encounter; Y93.89 Activity, other specified; Y92.89 Other specified places as the place of occurrence of the external cause; Y99.8 Other external cause status
CPT/HCPCS: 36415; 71046; 71275; 72128; 74177; 80048; 80061; 80076; 80307; 81001; 82550; 83690; 83735; 83880; 84443; 84484; 85025; 85379; 85610; 85730; 90471; 90714; 93005; 93970; 94640; 96361; 96365; 96372; 96375; G0238; J1650; J2270; J2405; J3475; J7120; J7620; Q9966; Q9967; 99285-25

== ENCOUNTER → 2019-06-25 | Outpatient (CLI) | payer BC ==
[~2019-06-25] MED LIST: ASPI-630 PO; ATOR10TA60 PO; HYDR-2759 PO; HYDR200T71 PO; MESA1.2T3 PO; TAMS0.4C97 PO
--- NOTE | 2019-06-25 12:21 | RAD ---
MR#: [id number] Date of Study: 06/25/2019 Ordering Physician: MARIUSZ WINSLOW Referring Physician: OSWALD MAN Tech: RT Wesley (Marilyn) (N) APPROVED REPORT Test Type: Exercise Stress Nurse/Tech: Aylin Murray Test Indications: chest pain after rib fracture Cardiac History: No known cardiac Medications: See EHR Resting Heart Rate: 71 bpm Resting Blood Pressure: 144/80mmHg Pretest Chest Pain: No chest pain Stress Symptoms Dyspnea POST EXERCISE Target HR: 136 Max HR: 140 bpm 87% of Maximum Predicted HR: 161 bpm Exercise duration: 8:10 min:sec, 3 Stage Exercise capacity: 10.0METs Max Blood Pressure: 164/82mmHg Blood Pressure response to exercise: Normal blood pressure response during stress. Chest Pain: No. Arrhythmia: No. ST Change: No. INTERPRETATION Stress EKG Conclusion: The resting EKG shows a sinus rhythm and trace nonspecific ST-T wave changes. The stress EKG shows no significant changes from baseline. No EKG evidence of stressed induced ischemia. Imaging Protocol IMAGE PROTOCOL: Stress Tc-99m/rest Tc-99m 2 days Rest: Stress: Viability: Radiopharm.Tc99m Sestamibi [id number] Duration 15min. Img Date 06/25/2019 Inj-Img [id number]. Stress Admin Site: IV - Right AntecubitalAdministrator: RT Wesley (Marilyn)(N) STRESS DATA End Diast. Vol.105.0mlAv. Heart Rate73.0bpm End Syst. Vol.29.0mlCO Index BSA0.0L/min Myocardial Sssv882.0gEject. Xdfucuwq21.0% Stress Rates Pk. Fill Rate2.59EDV/secLVtime Pk. Fill 250.50msec Pk. Empty Rate4.58ESV/secLVtime Pk. Lkekm751.96msec / Pk. Fill1.00EDV/sec Stress Scores Regional WT1.00Summed WT3.00 Regional WM0.00Summed WM0.00 LV Perfusion The stress scans showed no significant defects. Nuclear imaging shows no evidence of ischemia or infarct. Wall Motion Normal left ventricular systolic function with an ejection fraction of greater than 70%. LV Perf. Quant 17 Seg. SSS0.00 Stress Defect Extent (% LAD)3.10Rest Defect Extent (% LAD)Rev. Defect Extent (% LAD)0.00 Stress Defect Extent (% LCX) 0.00Rest Defect Extent (% LCX)Rev. Defect Extent (% LCX)0.00 Stress Defect Extent (% RCA)0.00Rest Defect Extent (% RCA)Rev. Defect Extent (% RCA)0.00 Stress Defect Extent (% LULA)1.10Rest Defect Extent (% LULA)Rev. Defect Extent (% LULA)0.00 Conclusion 1. Good exercise tolerance with the patient walking for 8 minutes and 10 seconds on a Alvaro protocol. 2. No reported chest pain with exertion. 3. No EKG evidence of stressed induced ischemia. 4. Nuclear imaging shows no ischemia or infarct. 5. Normal left ventricular systolic function with an ejection fraction of greater than 70%. 6. Low risk treadmill nuclear stress test. Signed by : Samson Tuttle MD Electronically Approved : 06/25/2019 12:20:44
== END | disposition home or self-care (01) ==
LOC: NM 07:37
PROVIDERS: ATTEND Internal Medicine Cardiovascular Disease
DX: R07.9 Chest pain, unspecified (principal); R06.00 Dyspnea, unspecified
CPT/HCPCS: 78452; 93017; A9500